=== PATIENT | male | born 1995 | race Two or more races ===

== ENCOUNTER 2023-11-01 22:43 | Emergency (ER) | payer BC ==
[~2023-11-01] VITALS: Ht 180.3 cm; Wt 74.4 kg
[2023-11-02 08:06] LABS: HEMOGLOBIN 14.7 g/dL (13-16.00); MEAN CELL VOLUME 86.7 fL (80.0-100.00); MEAN CORPUSCULAR HEMOGLOBIN 29.6 pg (27.00-32.0); MEAN CORPUSCULAR HGB CONC 34.2 g/dl (32.0-36.0); PLATELET COUNT 263 K/uL (150-450); RED BLOOD COUNT 4.96 M/uL (4.00-6.00); RED CELL DISTRIBUTION WIDTH 13.1 % (11.5-14.5)
[2023-11-02 08:21] LABS: CALCIUM 8.8 mg/dL (8.5-10.1); CREATININE SERUM 1.01 mg/dL (0.70-1.30); GFR 89.29; POTASSIUM 3.88 mEq/L (3.5-5.1)
[2023-11-02] MEDS ORDERED: PEPCID AC20 MG PO (08:59)
[2023-11-02] MEDS ORDERED: ZOFRAN8 MG PO (08:59)
== END 2023-11-02 09:20 | disposition home or self-care (01) ==
LOC: ER 22:44
DX: K52.89 Other specified noninfective gastroenteritis and colitis (principal)